=== PATIENT | male | born 1935 | race Two or more races ===

== ENCOUNTER 2019-01-31 05:52 | Day surgery (SDC) | payer MEDICARE ==
[~2019-01-31] VITALS: Ht 180.3 cm; Wt 70.3 kg
[2019-01-31 06:28] LABS: BASOPHILS 0.8 % (0-2); EOSINOPHILS 3.8 % (0-7); HEMATOCRIT 26.8 % (42.0-54.0); HEMOGLOBIN 8.7 g/dL (13.5-17.5); IMMATURE GRANULOCYTES 0.2 % (0-5); LYMPHOCYTES 19.6 % (15-50); MCH 30.5 pg (26.0-34.0); MCHC 32.5 g/dL (31.0-37.0); MEAN PLATELET VOLUME 9.8 fL (7.4-10.4); MONOCYTES 8.1 % (2-11); NEUTROPHILS 67.5 % (40-80); PLATELET COUNT 138 10x3/uL (130-400); RBC 2.85 10x6/uL (4.20-6.10); RDW 14.6 % (11.5-14.5)
[2019-01-31 06:37] LABS: ANION GAP 14.6 mmol/L (8-16); CALCIUM 8.6 mg/dL (8.5-10.1); CARBON DIOXIDE 24.7 mmol/L (21.0-32.0); CREATININE - SERUM 4.2 mg/dL (0.6-1.3); POTASSIUM - SERUM 5.3 mmol/L (3.5-5.1)
[2019-01-31 06:43] LABS: INR 1.14 (0.85-1.17); PROTIME 14.1 SECONDS (11.6-15.0)
[2019-01-31] MEDS ORDERED: LISINOPRIL20 MG PO (06:55)
[2019-01-31] MEDS ORDERED: COREG12.5 MG PO (06:55)
[2019-01-31] MEDS ORDERED: PRAVASTATIN SOD10 MG PO (06:55)
[2019-01-31] MEDS ORDERED: ASPIRIN81 MG PO (06:56)
[2019-01-31] MEDS ORDERED: LEVO-T25 MCG PO (06:56)
[2019-01-31] MEDS ORDERED: FUROSEMIDE20 MG PO (06:56)
[2019-01-31 07:03] VITALS: BP 122/63; Ht 180.3 cm; Wt 70.3 kg
--- NOTE | 2019-01-31 14:08 | NUR ---
REMOVED FACE MASK. VSS, O2 SAT 99% ON ROOM AIR. PT NOW AWAKE AND EYES OPEN HOWEVER HE WILL NOT COMMUNICATE WITH ME BUT THERE IS A KNOWN LANGUAGE BARRIER. NO S/S OF PAIN OR DISTRESS. WILL CTM.
--- NOTE | 2019-01-31 14:24 | NUR ---
ICE APPLIED TO ABDOMEN SITE ORDERED. REMOVED DE LA ROSA PER VERBAL ORDER. DEFLATED 9CC OF FLUID FROM BALLOON THEN PULLED DE [place] ROSA CATHETER WITH CATHETER TIP FULLY INTACT. INSTRUCTED PT ON POST DE LA ROSA INSTRUCTIONS. NO CURRRENT NEEDS.
--- NOTE | 2019-01-31 14:43 | NUR ---
1435-REC'D FROM RR. DROWSY, EASILY AROUSED WITH VERBAL STIMULI. GUAZE TO LEFT WRIST CDI.ABLE TO FEEL THRILL AND AUSCULATE BRUIT. FAMILY AT BEDSIDE. CL IN EASY REACH.
--- NOTE | 2019-01-31 15:05 | NUR ---
1505-RENAL FULL LIQUID TRAY TO ROOM.VSS.DENIES COMPLAINTS
--- NOTE | 2019-02-07 11:07 | OP ---
PATIENT NAME: MELITA BARRIOS MEDICAL RECORD: [id number] :35 LOCATION:[facility] ADMISSION DATE: SURGEON: ARJUN BYNUM MD DATE OF OPERATION: 01/31/2019 PREOPERATIVE DIAGNOSES: End-stage renal disease and dependence on hemodialysis. OPERATION PERFORMED: Creation of a left upper extremity Selvin type distal brachial artery to median antebrachial and antecubital vein with a dual outflow distal and proximal and also ligation of the venous drainage to the basilic vein and then also laparoscopic implantation of a peritoneal dialysis catheter. SURGEON: Arjun Bynum MD ANESTHESIA: General endotracheal per RETAIL PERFORMANCE SPECIALIST. REFERRING PHYSICIAN: Dr. Mcconnell. PREOPERATIVE NOTE: This 83-year-old male has end-stage renal disease and needs a long-term dialysis access, both hemodialysis and peritoneal. Under general endotracheal anesthesia, the patient was prepped and draped in sterile manner. The fistula was constructed first. I applied a Tanika drain as a proximal venous tourniquet and nitroglycerin paste was applied to the intact skin of the arm and forearm. I examined him with ultrasound and found that although his veins were very large including the cephalic vein at the wrist and through the forearm. The radial artery was very heavily calcified. The brachial artery in the antecubital space was not nearly so diseased and there was a large median cubital with a large cephalic and basilic vein runoff. Still in hopes that he would be a candidate for wrist fistula because of the anatomy of the vein. I exposed the radial artery through a longitudinal incision and confirmed that it was even harder, more sclerotic, and more calcified than I had thought it would be from the ultrasound images. That wound was closed with 3-0 Vicryl and 4-0 Monocryl and Dermabond glue. It was dressed with Maxorb and Tegaderm with Cavilon. I made a transverse antecubital incision or just below the cubital level and exposed the brachial artery down to the origin of the radial artery and the median cubital and proximal median antebrachial vein. There was a large vein communicating with the basilic vein. This was ligated and clipped. The vessels were prepared for [id number] anastomosis. The vein and artery were approximated to side and side and occluded when needed utilizing a doubly looped Silastic tapes. A venotomy was made and a 2-mm coronary artery dilator passed distally in the median antebrachial vein to lyse intact valves. I felt this was very successful and expect the patient will have a distal development of the fistula. The vein was flushed proximally and distally then with heparinized saline. A corresponding arteriotomy was made and flushed proximally and distally with heparinized saline and a [id number] anastomosis was performed with running 7-0 Prolene. The suture line was sealed with glue and the wound then closed with interrupted inverted 3-0 Vicryl and running intracuticular 4-0 Monocryl and Dermabond glue. The incision was dressed with Maxorb Ag, Tegaderm, and Cavilon skin prep. The patient developed excellent flow immediately within the fistula and there OPERATIVE REPORT [id number] MELITA BARRIOS was preservation of pulsatile flow in the radial and ulnar arteries at the wrist. I felt sufficient to prevent steal syndrome. The abdomen was then prepped and draped in a sterile manner. I entered the abdomen through a small incision in the left upper quadrant with a 5 mm XL Optiview trocar and 5 mm 0-degree laparoscope. Pneumoperitoneum was established with carbon dioxide and I found that the patient had no significant omentum. He did have a distended urinary bladder and some dilated colon. Certainly these could be a problem later on with his peritoneal dialysis. I measured with the HiWired stencils for placement of a HiWired classic flex coil dual-cuff catheter. A transverse incision was made over the right rectus muscle just below the level of the umbilicus and that incision was carried down to the anterior rectus sheath. An introducer was then inserted through the anterior rectus sheath and obliquely through the rectus muscle and then in the preperitoneal space observed with the laparoscope, and finally it entered the peritoneal cavity at a level just above the urinary bladder and is to the right of the midline. Through that, I inserted the coiled catheter and put the deep cuff beneath the rectus sheath and placed a pursestring suture of 0 Vicryl. The catheter was then placed in a subcutaneous tunnel using a Dasia trocar following a preplanned course leading to a preplanned exit site in the right upper quadrant. The opening in the skin was fit snugly around the catheter. The catheter was accessed and noted to irrigate freely. The trocar was used during the placement of the catheter to place the coil posterior to the distended rectum and in the true pelvis. The laparoscope and a 5-mm port were removed and the wound was then irrigated with Ancef and gentamicin solution, infiltrated with 0.25% Marcaine without epinephrine and closed with interrupted inverted 3-0 Vicryl and 4-0 Monocryl. The incisions were sealed with glue and dressed with Maxorb Ag, Tegaderm, and Cavilon skin prep. A Flor transfer set was then attached to the peritoneal dialysis catheter, which was then heparin locked. The catheter was dressed with a chlorhexidine Biopatch at the exit site and covered with a 4 x 4 Medipore dressing. The external tubing was coiled and held in position with a Medipore tape. The patient at that point was awakened and taken to the recovery room where he was noted to have a good bruit over his new fistula and had no evidence of bleeding or any other complications. PLAN: For the patient to go home today. He is advised to take Tylenol one or two p.o. q.4 hours p.r.n. for pain and use an ice pack on the abdominal incision areas as needed. He will come back to see me in my office in about 2 weeks, but next week he will see one of the peritoneal dialysis [facility] nurses in [place] to have his catheter flushed and heparin locked. The patient was catheterized and a 700 cc of urine drained and the urinary catheter is to be removed in the recovery room. I did run 1000 cc of fluid into the abdomen. This ran very easily and was easily able to get back about 800 cc before we left the operating room. There was minimal blood loss during the procedure. Sponges, instruments, and needles were accounted for. No drain was used. I did not perform omentopexy nor was there a need for hernia repair. TRANSINT:[id number] Voice Confirmation ID: [id number] DOCUMENT ID: [id number] OPERATIVE REPORT [id number] MELITA BARRIOS JAMES MD at 1107 CC: DON MCCONNELL MD [id number] DICTATION DATE: 01/31/19 1613 JOB SERVICE CONSULTANT: 01/31/19 2234 [facility] 01/31/19 [id number] [place] [address]
== END 2019-01-31 16:25 | disposition home or self-care (01) ==
LOC: D.OPS 05:52
PROVIDERS: Surgery; ATTEND Internal Medicine
DX: N18.6 End stage renal disease (principal); Z99.2 Dependence on renal dialysis